=== PATIENT | male | born 1980 | race Caucasian/White ===

== ENCOUNTER 2021-08-25 13:22 | Emergency (ER) | payer OTHER, SELFPAY ==
[2021-08-25] MEDS ORDERED: Ketorolac Tromethamine 30 MG/ML VIAL ONE (14:04)
[2021-08-25 14:31] LABS: #Eosinphils 0.2 thou/uL (0.0-0.7); #Monocytes 0.7 thou/uL (0.11-0.59); #Neutrophils 4.3 thou/uL (1.40-6.50); %Basophils 0.2 % (0.0-1.0); %Eosinophils 3.4 % (0.0-10.0); %Neutrophils 59.4 % (42.0-75.0)
[2021-08-25 14:32] LABS: Hemoglobin 16.2 g/dL (14.0-18.0); Mean Corpuscular HGB CONC 33.7 g/dL (32.0-36.0); Mean Corpuscular Hemoglobin 31.1 pg (27.0-31.0); Mean Corpuscular Volume 92.4 fL (78.0-98.0); Mean Platelet Volume 9.1 fL (7.4-10.4); Platelet Count 168 thou/uL (130-400); RBC Distribution Width 11.9 % (11.5-14.5); Red Blood Cell (RBC) Count 5.22 mill/uL (4.70-6.10); White Blood Cell (WBC) Count 7.3 thou/uL (4.8-10.8)
[2021-08-25 15:04] LABS: Albumin 4.4 g/dL (3.5-5.0)
[2021-08-25 15:05] LABS: Calcium 9.6 mg/dL (7.8-10.44); Chloride 105 mmol/L (98-107); Potassium 4.1 mmol/L (3.5-5.1); Sodium 138 mmol/L (136-145)
[2021-08-25 15:06] LABS: Glucose 110 mg/dL (70-105)
[2021-08-25 15:07] LABS: Protein, Total 7.4 g/dL (6.0-8.3)
[2021-08-25 15:08] LABS: Anion Gap 13 mmol/L (10-20); Bilirubin, Total 0.6 mg/dL (0.2-1.2); Carbon Dioxide 24 mmol/L (22-29)
[2021-08-25 15:09] LABS: Alkaline Phosphatase 63 U/L (40-110)
[2021-08-25 15:10] LABS: BUN (Urea Nitrogen) 14 mg/dL (8.9-20.6); Calc. Creatinine Clearance 0 mL/min (70-130)
[2021-08-25 15:11] LABS: AST (SGOT) 18 U/L (5-34)
[2021-08-25 15:12] LABS: ALT (SGPT) 22 U/L (8-55); Lipase 31 U/L (8-78)
[2021-08-25 15:49] LABS: Bilirubin Negative (Negative); Blood, Urine Negative (Negative); Clarity Clear (Clear); Glucose, Urine (Dipstick) Normal (Negative); Ketone, Urine Negative (Negative); Leukocyte Negative Leu/uL (Negative); Nitrite Negative (Negative); Protein, Urine (Dipstick) 10 mg/dL (Neg-Trace); Urobilinogen Normal mg/dL (Less than 2); pH, Urine 6.5 (5.0-9.0)
== END 2021-08-25 16:36 | disposition home or self-care (01) ==
LOC: ERS 13:22
DX: M53.3 Sacrococcygeal disorders, not elsewhere classified (principal); F17.200 Nicotine dependence, unspecified, uncomplicated
CPT/HCPCS: 80053; 81003; 83690; 85025; 96374; J1885